=== PATIENT | female | born 1990 | race Caucasian/White ===

== ENCOUNTER → 2018-11-13 | Outpatient (CLI) | payer SELFPAY ==
--- NOTE | 2018-11-13 15:00 | RADIOLOGY IMAGING REPORT ---
FACILITY: [facility] PATIENT NAME: EMILY FISHER : [id number] MR: [id number] V: [id number] EXAM DATE: [id number] ORDERING PHYSICIAN: ROSALVA JIMENEZ TECHNOLOGIST: Arpan Buckley RDMS, RDCS PROCEDURE:US LEFT BREAST COMPARISON:None. INDICATIONS:PALPABLE LUMP NEAR AEROLA LEFT BREAST FINDINGS: Ultrasound images of the Left breast demonstrate a slightly prominent duct, at the 12:30 position at the patient's palpable lump of the Left breast. There is no suspicious mass. DIAGNOSTIC CATEGORY 2--BENIGN FINDING. RECOMMENDATIONS: CLINICAL EVALUATION. Yearly mammography at 38 yrs of age. This was discussed with the patient by Dr Head IMPRESSION: BIRADS 2: Benign finding. Patient's palpable lump Left breast represents a benign duct. Dictated by: Tristan Head M.D. on 11/13/2018 at 13:36 Transcribed by: YUNI on 11/13/2018 at 14:48 Approved by: Tristan Head M.D. on 11/13/2018 at 14:58 [facility]
== END ==
LOC: US 10:24
PROVIDERS: ATTEND Nurse Practitioner Family
DX: N63.21 Unspecified lump in the left breast, upper outer quadrant (principal)